=== PATIENT | male | born 1945 | race Caucasian/White ===

== ENCOUNTER → 2017-08-09 | Outpatient (CLI) | payer OTHER ==
--- NOTE | 2017-08-09 17:17 | VAS ---
Exam: Bilateral lower extremity venous Doppler exam. History: Right calf pain. Evaluate for possible DVT. Comparison: None Findings: Ultrasound evaluation of the deep venous system of both legs was performed from the level o f the inguinal ligament down to the calf. On both sides, the deep system is widely patent with good f low and compressibility noted throughout its course. No sign of intraluminal thrombus in either leg. IMPRESSION: No DVT is seen in either lower extremity. Reported By:
== END ==
LOC: RAD 16:09
PROVIDERS: ATTEND Obstetrics & Gynecology Obstetrics
DX: R60.1 Generalized edema (principal)
CPT/HCPCS: 93970